=== PATIENT | female | born 1995 | race American Indian/Alaskan Native ===

== ENCOUNTER 2024-12-14 15:42 | Outpatient (CLI) | payer OTHER, SELFPAY ==
--- OUTSIDE RECORDS SUMMARY | 2024-12-14 15:59 | XMS_ITS | Encounter Summary ---
Author Organization [facility] Address [address] [place] [address] Care Team Providers Care Injection Molder Name Role Phone None, Provider Primary Care Provider Krishan Jaeger MD Primary Care Provider Aaron Sanchez MD Primary Care Provider [phone] Encounter Details Date Type Department Care Team (Late st Contact Info) Description 04/16/2019 Abstract SFL CONVERSION [address] [place] [id number] , Generic Conversion, Social History Tobacco Use Types Packs/Day Years Used Date Smoking Tobacco: Never Assessed Comments Unknown Sex and Gender Information Value Date Recorded Sex Assigned at Not on file Legal Sex Female 7:11 PM CDT Gender Identity Not on file Sexual Orientation Not on file documented as of this encounter Plan of Treatment Not on file documented as of this encounter Visit Diagnoses Not on filedocumented in this encounter Additional Health Concerns Infection Onset Date Last Indicated Resolved Time ESBL - Extended Spectrum Bet a-lactamase Comment:06/11/23 urine (JK) 06/17/23 urine (JK) 06/11/2023 06/17/2023 documented as of this encounter Care Teams Injection Molder Relationship Specialty Start Date End Date None, Provider, PCP - General 09/14/18 03/10/22 Krishan Johnson MD [address] [place] [address] PCP - General FAMILY PRACTICE 03/11/22 06/21/24 Aaron Sanchez MD [address] [place] [address] PCP - General FAMILY PRACTICE 06/22/24 documented as of this encounter
--- OUTSIDE RECORDS SUMMARY | 2024-12-14 16:00 | XMS_ITS | Clinical Summary ---
Author Organization [facility] Address [address] [place] [address] Care Team Providers Care Travel Ticketing Reviewer Name Role Phone Aaron Sanchez MD Primary Care Provider [phone] Allergies Active Allergy Reactions Criticality Noted Date Comments Penicillins Throat swelling High 01/28/2023 Medications No known medications Active Problems Problem Noted Date Diagnosed Date ([facility]) 12/16/2023 Appendicitis 03/15/2023 Acute appendicitis 03/14/2023 Tear of left glenoid labrum, initial encounter 0 01/30/2023 Resolved Problems Problem Noted Date Diagnosed Date Resolved Date Dehydration 04/29/2023 04/30/2023 Encounters Date Type Department Care Team Description 10/03/2024 12:57 PM COMPUTER OPERATIONS MANAGER - 10/03/2024 11:[address] [facility] Hospital Encounter [facility] Ultrasound [address] [place] [address] Ting Lau, FERMÍN Discharge Disposition: Home or Self Care (Routine Discharge) 10/03/2024 Travel from Last 3 Months Family History Medical History Relation Comments No Known Problems Father No Known Problems Mother Relation Status Comments Father Alive Mother Alive Social History Tobacco Use Types Packs/Day Years Used Date Smoking Tobacco: Never Smokeless Tobacco: Never Tobacco Cessation:Counseling Given: Not Answered Alcohol Use Standard Drinks/Week Comments Not Currently 0 (1 standard drink = 0.6 oz pur e alcohol) Humiliation, Afraid, Rape, and Kick questionnair e Answer Date Recorded Within the last year, have y ou been afraid of your partner or ex-partner? No 04/29/2023 Within the last year, have y ou been humiliated or emotionally abused in other ways by your partner or ex-partner? No Within the last year, have y ou been kicked, hit, slapped, or otherwise physically hurt by your partner or ex-partner? No 04/29/2023 Within the last year, have y ou been raped or forced to have any kind of sexual activity by your partner or ex-partner? No 04/29/2023 Overall Financial Resource Strain (CARDIA) Answe r Date Recorded How hard is it for you to pa y for the very basics like food, housing, medical care, and heating? Not hard at all 04/29/2023 Hunger Vital Sign Answer Date Recorded Within the past 12 months, y ou worried that your food would run out before you got the money to buy more. Never true 04/29/20 23 Within the past 12 months, t he food you bought just didn't last and you didn't have money to get more. Never true 04/29/2023 PRAPARE - Transportation Answer Date Re corded In the past 12 months, has l ack of transportation kept you from medical appointments or from getting medications? No 04/10 In the past 12 months, has l ack of transportation kept you from meetings, work, or from getting things needed for daily living? No 04/29/2023 Housing Stability Vital Sign Answer Bhupendra e Recorded In the last 12 months, was t here a time when you were not able to pay the mortgage or rent on time? No 04/29/2023 In the last 12 months, how many places have you lived? 1 04/29/2023 In the last 12 months, was t here a time when you did not have a steady place to sleep or slept in a senior care (including now)? No 04/29/2023 Comments No Sex and Gender Information Value Date Recorded Sex Assigned at Not on file Legal Sex Female 7:11 PM CDT Gender Identity Not on file Sexual Orientation Not on file Last Filed Vital Signs Vital Sign Reading Time Taken Comments Blood Pressure 105/87 12/17/2023 10:50 AM COMPUTER OPERATIONS MANAGER Pulse 82 12/17/2023 10:50 AM COMPUTER OPERATIONS MANAGER Temperature 36.9 C (98.5 F) 12/17/2023 7:24 AM COMPUTER OPERATIONS MANAGER Respiratory Rate 16 12/17/2023 7:24 AM COMPUTER OPERATIONS MANAGER Oxygen Saturation 96% 12/17/2023 7:24 AM COMPUTER OPERATIONS MANAGER Inhaled Oxygen Concentration - - Weight 86.2 kg (190 lb) 12/16/2023 1:40 AM COMPUTER OPERATIONS MANAGER Height 149.9 cm (4' 11 ) 12/16/2023 1:40 AM COMPUTER OPERATIONS MANAGER Body Mass Index 38.38 12/16/2023 1:40 AM COMPUTER OPERATIONS MANAGER Plan of Treatment Health Maintenance Due Date Last Done Comments Cervical Cancer Screening Pap Smear (Age 21 to 29) Every 3 Years 1997 Cervical Cancer Screening 1997 Annual Physical 2000 DTaP, Tdap and Td Vaccines (5 - Td or Tdap) 03/31/2018 03/31/2008, 05/18/2003, 01/17/2000, Additional history exists COVID-19 Vaccine ( season) 2024 Influenza Adult (#1) 2024 Hepatitis B Vaccines Completed 02/27/1998, 1997, 1997 Hepatitis C Completed 07/12/2024, 06/17/2023 HPV Vaccines Aged Out No longer eligi ble based on patient's age to complete this topic Meningococcal B Vaccine Aged Out No l onger eligible based on patient's age to complete this topic Meningococcal Vaccine Aged Out No almas sergio eligible based on patient's age to complete this topic Pneumococcal Vaccine: Pediatrics (0 to 5 Years) and At-Risk Patients (6 to 64 Years) Aged Out No longer eligible based on patient's age to complete this topic RSV Immunizations Under 20 Months Aged Out No longer eligible based on patient's age to complete this topic Procedures Procedure Name Priority Date/Time Associated Diagnosis Comments US OB COMP >14WKS TA Routine 10/03/2024 2:43 PM COMPUTER OPERATIONS MANAGER Encounter for screening (HHS/HCC) HEPATITIS C ANTIBODY Routine 07/12/2024 10:49 AM CDT Screening for -associate d plasma protein A (HHS/HCC) from Last 3 Months or Most Recently Relevant to Health Maintenance Results * US OB COMP >14WKS TA (10/03/2024 2:43 PM COMPUTER OPERATIONS MANAGER) Anatomical Region Laterality Modality Abdomen Ultrasound 10/03/2024 4:41 PM COMPUTER OPERATIONS MANAGER Impressions 10/03/2024 4:49 PM COMPUTER OPERATIONS MANAGER IMPRESSION: 1. Single living intrauterine currently in cephalic presentation with a estimated gestational age of 20 weeks and 3 days by today's sonogram, concordant with clinical dating. 2. All required structures are visualized without appreciable anomaly. 3. Posterior placenta without previa. Ordered By: TING LAU Interpreted By: Cecil Romero, 10/03/2024 4:41 PM Narrative 10/03/2024 4:49 PM COMPUTER OPERATIONS MANAGER [facility] [address] [place] [address] EXAMINATION: US OB COMP >14WKS TA INDICATIONS: Encounter for screening, unspecified ([facility]) COMPARISON: NONE TECHNIQUE: Second trimester obstetric transabdominal ultrasound imaging of the fetus. FINDINGS: Clinical datin weeks and 0 days.. Single live intrauterine in cephalic presentation. Normal four-chamber view of the heart with normal cardiac motion and a heart rate of 156 beats per minute. The ventricular outflow tracts are visualized. The placenta is posterior and clear of the internal cervical os. Placenta-Cervix distance: 5.8 cm. The cervix measures approximately 4.7 cm in length and appears closed. Amniotic Fluid Maximum Vertical Pocket: 4.9 cm. No significant free fluid within the dependent pelvis. anatomic survey: The ventricles, thalami, cava, cisterna magna, nasolabial region, and spine are visualized. Normal situs. The diaphragm, kidneys, stomach, and urinary bladder are visualized. Normal three-vessel cord and cord insertion. Four extremities are present . The following measurements were obtained: BPD: 4.75 cm consistent with 20 weeks and 3 days. HC: 17.99 cm consistent with 20 weeks and 3 days. AC: 14.97 cm consistent with 20 weeks and 2 days. FL: 3.41 cm consistent with 20 weeks and 5 days. CI: 74.22. HC/AC: 1.20. FL/BPD: 71.89. FL/HC: 18.99. FL/AC: 22.81. Estimated weight is 355 +/- 52 grams. EFW percentile: 71.9 % Estimated gestational age by today's sonogram is 20 weeks and 3 days. Estimated date of confinement by this ultrasound examination is 02/17/2025 Procedure Note Cecil Romero MD - 10/03/2024 [facility] Jimenez [address] [place] [address] EXAMINATION: US OB COMP >14WKS TA INDICATIONS: Encounter for screening, unspecified ([facility]) COMPARISON: NONE TECHNIQUE: Second trimester obstetric transabdominal ultrasound imagingof the fetus. FINDINGS: Clinical datin weeks and 0 days.. Single live intrauterine in cephalic presentation. Normal four-chamber view of the heart with normal cardiac motion carmen heart rate of 156 beats per minute. The ventricular outflow tracts are visualized. The placenta is posterior and clear of the internal cervical os. Placenta-Cervix distance: 5.8 cm. The cervix measures approximately 4.7 cm in length and appears closed. Amniotic Fluid Maximum Vertical Pocket: 4.9 cm. No significant free fluid within the dependent pelvis. anatomic survey: The ventricles, thalami, cava, cisterna magna, nasolabial region, andspine are visualized. Normal situs. The diaphragm, kidneys, stomach, and urinary bladder are visualized. Normal three-vessel cord and cord insertion. Four extremities are present . The following measurements were obtained: BPD: 4.75 cm consistent with 20 weeks and 3 days. HC: 17.99 cm consistent with 20 weeks and 3 days. AC: 14.97 cm consistent with 20 weeks and 2 days. FL: 3.41 cm consistent with 20 weeks and 5 days. CI: 74.22. HC/AC: 1.20. FL/BPD: 71.89. FL/HC: 18.99. FL/AC: 22.81. Estimated weight is 355 +/- 52 grams. EFW percentile: 71.9 % Estimated gestational age by today's sonogram is 20 weeks and 3 days. Estimated date of confinement by this ultrasound examination is 02/17/2025 IMPRESSION: 1. Single living intrauterine currently in cephalicpresentation with a estimated gestational age of 20 weeks and 3 days bytoday's sonogram, concordant with clinical dating. 2. All required structures are visualized without appreciableanomaly. 3. Posterior placenta without previa. Ordered By: TING LAU Interpreted By: Cecil Romero, 10/03/2024 4:41 PM Ting Lau CN ULTRASOUND Final Result * HEPATITIS C ANTIBODY (07/12/2024 10:49 AM CDT) HEPATITIS C AB NON-REACTI VE NON-REACTI VE 07/12/2024 9:58 PM CDT [facility] 07/12/2024 10:4 9 AM CDT [facility] Final Result [facility] [address] [place] [address], from Last 3 Months or Most Recently Relevant to Health Maintenance Additional Health Concerns Infection Onset Date Last Indicated ESBL - Extended Spectrum Bet a-lactamase Comment:06/11/23 urine (AnnabelK) 06/17/23 urine (JK) 06/11/2023 06/17/2023 Insurance Advance Directives * Full Code (Latest Code Status on File) Date Activated Date Inactivated Comments 12/16/2023 1:23 AM 12/16/2023 5:22 PM * Full Code Date Activated Date Inactivated Comments 12/16/2023 1:04 AM 12/16/2023 1:23 AM * Full Code Date Activated Date Inactivated Comments 12/15/2023 2:20 PM 12/15/2023 7:21 PM * Full Code Date Activated Date Inactivated Comments 11/03/2023 5:26 PM 11/03/2023 7:39 PM * Full Code Date Activated Date Inactivated Comments 04/29/2023 5:15 PM 04/30/2023 3:29 AM Care Teams Travel Ticketing Reviewer Relationship Specialty Start Date End Date Aaron Sanchez MD [address] [place] [address] PCP - General FAMILY PRACTICE 06/22/24
[2024-12-14 17:51] LABS: Hematocrit 37.1 % (37.0-47.0); Hemoglobin 12.3 g/dL (12.0-15.0); Mean Corpuscular HGB Conc 33.2 g/dl (32-36); Mean Corpuscular Hemoglobin 31.9 pg (26-34); Mean Corpuscular Volume 96.1 fl (80-100); Mean Platelet Volume 10.6 fl (7.4-10.4); Platelet Count Result 277 k/mm3 (150-375); Red Blood Count 3.86 M/mm3 (4.2-5.4); Red Cell Distribution Width 13.2 % (11.5-14.5); White Blood Count 10.2 K/mm3 (4.5-10.0)
[2024-12-14 18:48] LABS: HIV 1/2 Ab P24 Ag Result Negative (Negative)
[2024-12-14 18:58] LABS: Glucose 1 Hour PP 50gm Dose 161 mg/dL
[2024-12-15 06:40] LABS: Rapid Plasma Reagin Non-Reactive (NonReactive)
== END 2024-12-14 15:43 | disposition home or self-care (01) ==
LOC: ANHLAB 15:43
PROVIDERS: PCP Student in an Organized Health Care Education/Training Program; Visit Provider Student in an Organized Health Care Education/Training Program
DX: Z34.90 Encounter for supervision of normal pregnancy, unspecified, unspecified trimester (principal)
CPT/HCPCS: 36415; 82947; 85027; 86592; 86703; G0432

== ENCOUNTER 2024-12-19 18:41 | Observation (INO) | payer OTHER, SELFPAY ==
[2024-12-19] VITALS (61 sets, daily range): BP systolic 87–109; BP diastolic 50–68; PULSE 85–112; TEMP 37.1; O2SAT 90–100; BMI 38.0
--- OUTSIDE RECORDS SUMMARY | 2024-12-19 18:49 | XMS_ITS | Encounter Summary ---
Author Organization [facility] Address [address] [place] [address] Care Team Providers Care Lawn Mower Name Role Phone None, Provider Primary Care Provider Krishan Jaeger MD Primary Care Provider Aaron Sanchez MD Primary Care Provider [phone] Encounter Details Date Type Department Care Team (Late st Contact Info) Description 04/16/2019 Abstract SFL CONVERSION [address] [place] [id number] , Generic Conversion, Social History Tobacco Use [...] documented as of this encounter Care Teams Lawn Mower Relationship Specialty Start Date End Date None, Provider, PCP - General 09/14/18 03/10/22 Krishan Johnson MD [address] [place] [address] PCP - General FAMILY PRACTICE 03/11/22 06/21/24 Aaron Sanchez MD [address] [place] [address] PCP - General FAMILY PRACTICE 06/22/24 documented as of this encounter
--- OUTSIDE RECORDS SUMMARY | 2024-12-19 18:49 | XMS_ITS | Clinical Summary ---
Author Organization [facility] Address [address] [place] [address] Care Team Providers Care Manager School Name Role Phone Aaron Sanchez MD Primary Care Provider [phone] Allergies Active Allergy Reactions Criticality Noted Date Comments Penicillins Throat swelling High 01/28/2023 Medications No known medications Active Problems Problem Noted Date Diagnosed Date ([facility]) 12/16/2023 Appendicitis 03/15/2023 Acute appendicitis 03/14/2023 Tear of left glenoid labrum, initial encounter 0 01/30/2023 Resolved Problems Problem Noted Date Diagnosed Date Resolved Date Dehydration 04/29/2023 04/30/2023 Encounters Date Type Department Care Team Description 10/03/2024 12:57 PM PADDED PRODUCTS FINISHER - 10/03/2024 11:59 PM [facility] Hospital Encounter [facility] Ultrasound [address] [place] [address] Ting Lau, FERMÍN Discharge Disposition: Home or [...] place to sleep or slept in a jail (including now)? No 04/29/2023 Comments No Sex and Gender Information Value Date Recorded Sex Assigned at Not on file Legal Sex Female 7:11 PM CDT Gender Identity Not on file Sexual Orientation Not on file Last Filed Vital Signs Vital Sign Reading Time Taken Comments Blood Pressure 105/87 12/17/2023 10:50 AM PADDED PRODUCTS FINISHER Pulse 82 12/17/2023 10:50 AM PADDED PRODUCTS FINISHER Temperature 36.9 C (98.5 F) 12/17/2023 7:24 AM PADDED PRODUCTS FINISHER Respiratory Rate 16 12/17/2023 7:24 AM PADDED PRODUCTS FINISHER Oxygen Saturation 96% 12/17/2023 7:24 AM PADDED PRODUCTS FINISHER Inhaled Oxygen Concentration - - Weight 86.2 kg (190 lb) 12/16/2023 1:40 AM PADDED PRODUCTS FINISHER Height 149.9 cm (4' 11 ) 12/16/2023 1:40 AM PADDED PRODUCTS FINISHER Body Mass Index 38.38 12/16/2023 1:40 AM PADDED PRODUCTS FINISHER Plan of Treatment Health Maintenance Due Date [...] COMP >14WKS TA Routine 10/03/2024 2:43 PM PADDED PRODUCTS FINISHER Encounter for screening (HHS/HCC) HEPATITIS C ANTIBODY Routine 07/12/2024 10:49 AM CDT Screening for -associate d plasma protein A (HHS/HCC) from Last 3 Months or Most Recently Relevant to Health Maintenance Results * US OB COMP >14WKS TA (10/03/2024 2:43 PM PADDED PRODUCTS FINISHER) Anatomical Region Laterality Modality Abdomen Ultrasound 10/03/2024 4:41 PM PADDED PRODUCTS FINISHER Impressions 10/03/2024 4:49 PM PADDED PRODUCTS FINISHER IMPRESSION: 1. Single living intrauterine currently in cephalic presentation with a estimated gestational age of 20 weeks and 3 days by today's sonogram, concordant with clinical dating. 2. All required structures are visualized without appreciable anomaly. 3. Posterior placenta without previa. Ordered By: TING LAU Interpreted By: Cecil Romero, 10/03/2024 4:41 PM Narrative 10/03/2024 4:49 PM PADDED PRODUCTS FINISHER [facility] [address] [place] [address] EXAMINATION: US OB COMP >14WKS TA INDICATIONS: Encounter for screening, unspecified ([facility]) COMPARISON: NONE TECHNIQUE: Second trimester [...] Procedure Note Cecil Romero MD - 10/03/2024 [facility] [address] [place] [address] EXAMINATION: US OB COMP >14WKS TA INDICATIONS: Encounter for screening, unspecified ([facility]) COMPARISON: NONE TECHNIQUE: Second trimester [...] VE NON-REACTI VE 07/12/2024 9:58 PM CDT [facility] 07/12/2024 10:4 9 AM CDT [facility] Final Result [facility] [address] [place] [address], from Last 3 Months or Most Recently [...] 5:15 PM 04/30/2023 3:29 AM Care Teams Manager School Relationship Specialty Start Date End Date Aaron Sanchez MD [address] [place] [address] PCP - General FAMILY PRACTICE 06/22/24
--- NOTE | 2024-12-19 19:13 | OBADM ---
This patient, Ashlee Jeronimo, admitted to the OB room OB Post 117 for observation. Patient/family oriented to hospital policies and general routines including ID bracelet, bed and alarms, visiting hours, pain management, procedures, bathroom and other care routines, personal items, smoking policy, room service/diet, and visiting hours. Patient/Family are encouraged to report perceived risks to care and to ask questions if they do not understand what they are told or what they should do.
--- NOTE | 2024-12-19 20:00 | PC.NURSE ---
Called Dr. Russo, update on pt, cramping, nausea, vomiting, unable to void since 12/18, blood pressure, and tracing. Orders received to administer LR bolus 1000 ml then 250 ml/hr, zofran 4 mg, pepcid 20 mg, draw CBC, CMP, urinalysis, and COVID, flu, RSV swab.
[2024-12-19 20:37] LABS: Basophils Percent Auto 0.4 % (0.2-1.2); Eosinophils Percent Auto 0.2 % (0-4.4); Hemoglobin 11.3 g/dL (12.0-15.0); Immature Granulocyte Percent A 1.2 % (0-0.5); Lymphocytes Absolute Auto 0.61 K/mm3 (0.9-3.2); Lymphocytes Percent Auto 7.5 % (18.3-44.2); Mean Corpuscular HGB Conc 33.2 g/dl (32-36); Mean Corpuscular Hemoglobin 31.3 pg (26-34); Mean Corpuscular Volume 94.2 fl (80-100); Monocytes Absolute Auto 0.7 K/mm3 (0.1-0.6); Monocytes Percent Auto 9.2 % (2.6-8.5); Neutrophils Absolute Auto 6.6 K/mm3 (1.3-6.7); Neutrophils Percent Auto 81.5 % (45.5-73.1); Platelet Count Result 226 k/mm3 (150-375); Red Blood Count 3.61 M/mm3 (4.2-5.4); Red Cell Distribution Width 13.1 % (11.5-14.5); White Blood Count 8.1 K/mm3 (4.5-10.0)
[2024-12-19 20:46] LABS: Alanine Aminotransferase 20 U/L (6-35); Albumin Level 3.7 g/dL (3.5-5.1); Alkaline Phosphatase 103 U/L (38-126); Anion Gap 11 mmol/L (4-12); Aspartate Amino Transferase 20 U/L (14-36); Bilirubin,Total 0.6 mg/dL (0.2-1.3); Blood Urea Nitrogen 8 mg/dL (7-17); Calcium 8.3 mg/dL (8.4-10.2); Carbon Dioxide 20 mmol/L (22-30); Chloride 102 mmol/L (98-107); Estimated Glomerular Filt Rate > 60; Glucose 80 mg/dL (65-110); Potassium 3.4 mmol/L (3.4-5.0); Sodium 133 mmol/L (137-145)
[2024-12-19] MEDS: LACTATED RINGERS 1,000 ML 999 ML IV CONT ×2 (21:15→22:20)
[2024-12-19] MEDS: ONDANSETRON INJ 4 MG/2 ML VIAL IV PUSH (21:21)
[2024-12-19] MEDS: FAMOTIDINE 20 MG/2 ML VIAL IV PUSH (21:24)
--- NOTE | 2024-12-19 21:51 | PC.NURSE ---
Called Dr. Russo, update on pt, labs, and not able to void after LR bolus. Orders received to bolus second bag and administer Tylenol 1000 mg as needed.
[2024-12-19 23:08] LABS: Influenza A QL RT-PCR Positive (Negative); Influenza B QL RT-PCR Negative (Negative); RSV RNA, RT-PCR Negative (Negative); SARS-CoV-2 RNA PCR Negative (Negative)
[2024-12-19 23:38] LABS: Add Urine Microscopic? YES; Appearance Urine Turbid (Clear); Bacteria Urine 1+ /hpf; Bilirubin Urine 1+ (Negative); Blood Urine Negative (Negative); Color Urine Dark Yellow (Yellow); Glucose Urine UA Negative (Negative); Ketones Urine 4+ mg/dL (Negative); Leukocyte Esterase Ur 2+ LEU/UL (Negative); Nitrate Urine Negative (Negative); Non Pathogenic Casts 0-2; Protein Urine 1+ mg/dL (Negative); RBC Urine 0-2 /hpf (0-2); Specific Grav Ur 1.025 (1.001-1.035); Squamous Epithelial Cell Urine Occasional /hpf (Few); WBC Urine 51-100 /hpf (0-3)
--- NOTE | 2024-12-19 23:46 | PC.NURSE ---
Called Dr. Russo, update on pt, urine results, and positive Influenza A. Orders received to discharge pt with a prescription for bactrim DS BID for three days, keep next scheduled appointment, and when to return to the unit.
--- NOTE | 2024-12-20 00:21 | PC.NURSE ---
Pt discharged with a prescription for bactrim DS BID for three days, instructions to keep next scheduled appointment, and when to return to the unit, pt verbalizes understanding.
--- NOTE | 2024-12-21 07:56 | PM.OBTRLD ---
OB - Triage/Final Diagnosis Visit Information Comments/Additional reasons for admission: I have assessed the risk for this patient, Ashlee Jeronimo, and determined that she would benefit from observation care. Evaluation Laboratory results: Laboratory Tests 12/19/24 12/19/24 12/19/24 20:14 22:24 23:24 WBC 8.1 RBC 3.61 L Hgb 11.3 L Hct 34.0 L MCV 94.2 MCH 31.3 MCHC 33.2 RDW 13.1 Plt Count 226 MPV 10.0 Immature Gran % (Auto) 1.2 H Neut % (Auto) 81.5 H Lymph % (Auto) 7.5 L [place] % (Auto) 9.2 H Eos % (Auto) 0.2 Baso % (Auto) 0.4 Lymph # (Auto) 0.61 L [place] # (Auto) 0.7 H Eos # (Auto) 0.0 Baso # (Auto) 0.0 Abs Immat Gran (auto) 0.10 H Absolute Neuts (auto) 6.6 Absolute Nucleated RBC 0.000 Nucleated RBC % 0.0 Sodium 133 L Potassium 3.4 Chloride 102 Carbon Dioxide 20 L Anion Gap 11 BUN 8 Creatinine 0.51 L Estim Creat Clear Calc Not Reportable Estimated GFR > 60 Glucose 80 Calcium 8.3 L Total Bilirubin 0.6 AST 20 ALT 20 Alkaline Phosphatase 103 Total Protein 7.0 Albumin 3.7 Urine Color Dark yellow Urine Appearance Turbid H Urine pH 6.0 Ur Specific [place] 1.025 Urine Protein 1+ H Urine Glucose (UA) Negative Urine Ketones 4+ H Ur Blood (Man) Negative Urine Nitrate Negative Urine Bilirubin 1+ H Urine Urobilinogen 1.0 Leukocyte Esterase Rfl 2+ H Urine RBC 0-2 Urine WBC 51-100 H Ur Squamous Epith Cells Occasional Urine Bacteria 1+ H Urine Casts 0-2 Influenza A (RT-PCR) Positive A Influenza B (RT-PCR) Negative RSV (RT-PCR) Negative SARS-CoV-2 RNA (RT-PCR) Negative Final Diagnosis (1) UTI (urinary tract infection): Code(s): N39.0 - Urinary tract infection, site not specified Status: Acute (2) Dehydration: Code(s): E86.0 - Dehydration Status: Acute (3) Flu: Code(s): J11.1 - Influenza due to unidentified influenza virus with other respiratory manifestations Status: Acute
== END 2024-12-20 00:21 | disposition home or self-care (01) ==
PROVIDERS: Admitting Provider Obstetrics & Gynecology; Visit Provider Obstetrics & Gynecology
DX: O23.43 Unspecified infection of urinary tract in pregnancy, third trimester (principal); N39.0 Urinary tract infection, site not specified; O99.283 Endocrine, nutritional and metabolic diseases complicating pregnancy, third trimester; E86.0 Dehydration; O99.513 Diseases of the respiratory system complicating pregnancy, third trimester; J10.1 Influenza due to other identified influenza virus with other respiratory manifestations; Z3A.31 31 weeks gestation of pregnancy; Z20.822 Contact with and (suspected) exposure to COVID-19
CPT/HCPCS: 36415; 80053; 81001; 85025; 87086; 87637; 96361; 96374; 96375; 96376; 99199; A9270; G0378; G0379; J2405; J7120

== ENCOUNTER 2024-12-28 12:18 | Observation (INO) | payer OTHER, SELFPAY ==
[2024-12-28] VITALS (8 sets, daily range): BP systolic 91–123; BP diastolic 63–100; PULSE 84–111; BMI 39.8
--- NOTE | ~2024-12-28 | US_ITS ---
US abdomen limited INDICATION: Elevated liver enzymes. PROCEDURE: Realtime right upper abdominal ultrasound. COMPARISON: Ultrasound gallbladder dated 12/22/2014 FINDINGS: Pancreas is not visualized due to bowel shadowing. Liver echotexture is normal without foc al mass or intrahepatic biliary dilatation. There is normal directional flow in the portal vein. There are gallstones. Gallbladder is contracted limiting evaluation for gallbladder wall thickening. No pericholecystic fluid. Common bile duct measures 3 mm. No sonographic Wellington's sign. IMPRESSION: 1: Cholelithiasis. Reviewed, dictated and finalized at location B. CTOR LOSS PREVENTION IMPRESSION: 1: Cholelithiasis.
--- OUTSIDE RECORDS SUMMARY | 2024-12-28 12:24 | XMS_ITS | Encounter Summary ---
Author Organization [facility] Address [address] [place] [address] Care Team Providers Care Manager Of Maintenance Name Role Phone None, Provider Primary Care Provider Krishan Jaeger MD Primary Care Provider Aaron Sanchez MD Primary Care Provider [phone] Encounter Details Date Type Department Care Team (Late st Contact Info) Description 04/16/2019 Abstract SFL CONVERSION [address] [place] [id number] , Generic Conversion, Social History Tobacco Use [...] documented as of this encounter Care Teams Manager Of Maintenance Relationship Specialty Start Date End Date None, Provider, PCP - General 09/14/18 03/10/22 Krishan Johnson MD [address] [place] [address] PCP - General FAMILY PRACTICE 03/11/22 06/21/24 Aaron Sanchez MD [address] [place] [address] PCP - General FAMILY PRACTICE 06/22/24 documented as of this encounter
--- OUTSIDE RECORDS SUMMARY | 2024-12-28 12:24 | XMS_ITS | Clinical Summary ---
Author Organization [facility] Address [address] [place] [id number] Care Team Providers Care Roof Bolting Coal Miner Name Role Phone Aaron Sanchez MD Primary Care Provider [phone] Allergies Active Allergy Reactions Criticality Noted Date Comments Penicillins Throat swelling High 01/28/2023 Medications No known medications Active Problems Problem Noted Date Diagnosed Date ([facility]) 12/16/2023 Appendicitis 03/15/2023 Acute appendicitis 03/14/2023 Tear of left glenoid labrum, initial encounter 0 01/30/2023 Resolved Problems Problem Noted Date Diagnosed Date Resolved Date Dehydration 04/29/2023 04/30/2023 Encounters Date Type Department Care Team Description 10/03/2024 12:57 PM AIR DEFENCE OFFICER - 10/03/2024 11:59 PM [facility] Hospital Encounter [facility] Ultrasound [address] [place] [address] Ting Lau, FERMÍN Discharge Disposition: Home or [...] place to sleep or slept in a custodial (including now)? No 04/29/2023 Comments No Sex and Gender Information Value Date Recorded Sex Assigned at Not on file Legal Sex Female 7:11 PM CDT Gender Identity Not on file Sexual Orientation Not on file Last Filed Vital Signs Vital Sign Reading Time Taken Comments Blood Pressure 105/87 12/17/2023 10:50 AM AIR DEFENCE OFFICER Pulse 82 12/17/2023 10:50 AM AIR DEFENCE OFFICER Temperature 36.9 C (98.5 F) 12/17/2023 7:24 AM AIR DEFENCE OFFICER Respiratory Rate 16 12/17/2023 7:24 AM AIR DEFENCE OFFICER Oxygen Saturation 96% 12/17/2023 7:24 AM AIR DEFENCE OFFICER Inhaled Oxygen Concentration - - Weight 86.2 kg (190 lb) 12/16/2023 1:40 AM AIR DEFENCE OFFICER Height 149.9 cm (4' 11) 12/16/2023 1:40 AM AIR DEFENCE OFFICER Body Mass Index 38.38 12/16/2023 1:40 AM AIR DEFENCE OFFICER Plan of Treatment Health Maintenance Due Date [...] COMP >14WKS TA Routine 10/03/2024 2:43 PM AIR DEFENCE OFFICER Encounter for screening (HHS/HCC) HEPATITIS C ANTIBODY Routine 07/12/2024 10:49 AM CDT Screening for -associate d plasma protein A (HHS/HCC) from Last 3 Months or Most Recently Relevant to Health Maintenance Results * US OB COMP >14WKS TA (10/03/2024 2:43 PM AIR DEFENCE OFFICER) Anatomical Region Laterality Modality Abdomen Ultrasound 10/03/2024 4:41 PM AIR DEFENCE OFFICER Impressions 10/03/2024 4:49 PM AIR DEFENCE OFFICER IMPRESSION: 1. Single living intrauterine currently in cephalic presentation with a estimated gestational age of 20 weeks and 3 days by today's sonogram, concordant with clinical dating. 2. All required structures are visualized without appreciable anomaly. 3. Posterior placenta without previa. Ordered By: TING LAU Interpreted By: Cecil Romero, 10/03/2024 4:41 PM Narrative 10/03/2024 4:49 PM AIR DEFENCE OFFICER [facility] [address] [place] [address] EXAMINATION: US OB COMP >14WKS TA INDICATIONS: Encounter for screening, unspecified ([facility]) COMPARISON: NONE TECHNIQUE: Second trimester obstetric transabdominal [...] Procedure Note Cecil Romero MD - 10/03/2024 [facility] [address] [place] [address] EXAMINATION: US OB COMP >14WKS TA INDICATIONS: Encounter for screening, unspecified ([facility]) COMPARISON: NONE TECHNIQUE: Second trimester obstetric transabdominal [...] VE NON-REACTI VE 07/12/2024 9:58 PM CDT [facility] 07/12/2024 10:4 9 AM CDT [facility] Final Result [facility] [address] [place] [address], from Last 3 Months or Most Recently [...] 5:15 PM 04/30/2023 3:29 AM Care Teams Roof Bolting Coal Miner Relationship Specialty Start Date End Date Aaron Sanchez MD [address] [place] [address] PCP - General FAMILY PRACTICE 06/22/24
[2024-12-28 13:21] LABS: Alanine Aminotransferase 272 U/L (6-35); Albumin Level 3.8 g/dL (3.5-5.1); Alkaline Phosphatase 109 U/L (38-126); Anion Gap 12 mmol/L (4-12); Aspartate Amino Transferase 134 U/L (14-36); Bilirubin,Total 0.6 mg/dL (0.2-1.3); Blood Urea Nitrogen 11 mg/dL (7-17); Calcium 9.1 mg/dL (8.4-10.2); Carbon Dioxide 18 mmol/L (22-30); Chloride 104 mmol/L (98-107); Estimated Glomerular Filt Rate > 60; Glucose 104 mg/dL (65-110); Sodium 134 mmol/L (137-145)
[2024-12-28] MEDS: LACTATED RINGERS 1,000 ML 999 ML IV CONT ×3 (13:22→16:49)
[2024-12-28] MEDS: PROMETHAZINE HCL 25 MG/ML AMPUL 12.5 MG IV PUSH (13:25)
[2024-12-28 13:29] LABS: Basophils Absolute Auto 0.1 K/mm3 (0.0-0.1); Basophils Percent Auto 0.4 % (0.2-1.2); Eosinophils Absolute Auto 0.3 K/mm3 (0-0.3); Hematocrit 38.1 % (37.0-47.0); Hemoglobin 12.8 g/dL (12.0-15.0); Immature Granulocyte Absolute 0.14 K/mm3 (0.00-0.031); Lymphocytes Absolute Auto 2.08 K/mm3 (0.9-3.2); Lymphocytes Percent Auto 15.6 % (18.3-44.2); Mean Corpuscular HGB Conc 33.6 g/dl (32-36); Mean Corpuscular Hemoglobin 30.6 pg (26-34); Mean Corpuscular Volume 91.1 fl (80-100); Mean Platelet Volume 10.6 fl (7.4-10.4); Monocytes Absolute Auto 0.8 K/mm3 (0.1-0.6); Monocytes Percent Auto 6.3 % (2.6-8.5); Neutrophils Percent Auto 74.7 % (45.5-73.1); Platelet Count Result 327 k/mm3 (150-375); Red Blood Count 4.18 M/mm3 (4.2-5.4); Red Cell Distribution Width 12.8 % (11.5-14.5); White Blood Count 13.4 K/mm3 (4.5-10.0)
--- NOTE | 2024-12-28 13:34 | OBADM ---
This patient, Ashlee Jeronimo, admitted to the OB room OB Post 113 for observation. Patient/family oriented to hospital policies and general routines including ID bracelet, bed and alarms, visiting hours, pain management, procedures, bathroom and other care routines, personal items, smoking policy, room service/diet, and visiting hours. Patient/Family are encouraged to report perceived risks to care and to ask questions if they do not understand what they are told or what they should do.
[2024-12-28] MEDS: PANTOPRAZOLE SODIUM IV 40 MG VIAL IV PUSH (14:03)
--- NOTE | 2024-12-28 15:02 | PC.NURSE ---
1340--No nausea or vomiting at this time.
--- NOTE | 2024-12-28 15:02 | PC.NURSE ---
1450--Pt is unable to leave a urine sample. IV fluids continued.
[2024-12-28 15:37] LABS: Add Urine Microscopic? YES; Appearance Urine Cloudy (Clear); Bacteria Urine 1+ /hpf; Bilirubin Urine 1+ (Negative); Blood Urine Negative (Negative); Color Urine Dark Yellow (Yellow); Glucose Urine UA Negative (Negative); Ketones Urine Trace mg/dL (Negative); Leukocyte Esterase Ur 1+ LEU/UL (Negative); Nitrate Urine Negative (Negative); Non Pathogenic Casts 0-2; Protein Urine 1+ mg/dL (Negative); RBC Urine 0-2 /hpf (0-2); Specific Grav Ur 1.027 (1.001-1.035); Squamous Epithelial Cell Urine Moderate /hpf (Few)
[2024-12-28 16:27] LABS: Lipase 101 U/L (23-300)
[2024-12-28] MEDS: ceFAZolin 1 GM/NS 50 ML 1 GM/50 ML BAG IVPB (16:49)
--- NOTE | 2024-12-28 17:33 | PC.NURSE ---
1728--Reported labs, US report and patient status to Dr. Russo. Orders received to DC to home and follow up with regularly scheduled office visit.
--- NOTE | 2024-12-29 07:19 | P.PNOB_ITS ---
OB - Triage/Final Diagnosis Visit Information Comments/Additional reasons for admission: I have assessed the risk for this patient, Ashlee Jeronimo, and determined that she would benefit from observation care. Evaluation Laboratory results: Laboratory Tests 12/28/24 12:59 WBC 13.4 H RBC 4.18 L Hgb 12.8 Hct 38.1 MCV 91.1 MCH 30.6 MCHC 33.6 RDW 12.8 Plt Count 327 MPV 10.6 H Immature Gran % (Auto) 1.0 H Neut % (Auto) 74.7 H Lymph % (Auto) 15.6 L Mccormick % (Auto) 6.3 Eos % (Auto) 2.0 Baso % (Auto) 0.4 Lymph # (Auto) 2.08 Mccormick # (Auto) 0.8 H Eos # (Auto) 0.3 Baso # (Auto) 0.1 Abs Immat Gran (auto) 0.14 H Absolute Neuts (auto) 10.0 H Absolute Nucleated RBC 0.000 Nucleated RBC % 0.0 Sodium 134 L Potassium 4.0 Chloride 104 Carbon Dioxide 18 L Anion Gap 12 BUN 11 Creatinine 0.50 L Estim Creat Clear Calc Not Reportable Estimated GFR > 60 Glucose 104 Calcium 9.1 Total Bilirubin 0.6 AST 134 H ALT 272 H Alkaline Phosphatase 109 Total Protein 7.0 Albumin 3.8 Lipase 101 Urine Color Dark yellow Urine Appearance Cloudy H Urine pH 7.0 Ur Specific Red Bud 1.027 Urine Protein 1+ H Urine Glucose (UA) Negative Urine Ketones Trace H Ur Blood (Man) Negative Urine Nitrate Negative Urine Bilirubin 1+ H Urine Urobilinogen 1.0 Leukocyte Esterase Rfl 1+ H Urine RBC 0-2 Urine WBC 11-20 H Ur Squamous Epith Cells Moderate Urine Bacteria 1+ H Urine Casts 0-2 Vital signs: Vital Signs - 24 hr 12/28/24 13:15 12/28/24 13:30 12/28/24 13:45 Pulse Rate 111 H 95 94 Blood Pressure 115/80 105/70 123/100 H Blood Pressure [Left Arm] 12/28/24 14:01 12/28/24 14:58 12/28/24 15:00 Pulse Rate 89 95 99 Blood Pressure 112/78 123/89 Blood Pressure [Left Arm] 105/70 12/28/24 16:01 12/28/24 17:00 Pulse Rate 89 84 Blood Pressure 99/67 L 91/63 L Blood Pressure [Left Arm] Final Diagnosis (1) Hyperemesis: Code(s): R11.10 - Vomiting, unspecified Status: Acute (2) Gall stones: Code(s): K80.20 - Calculus of gallbladder without cholecystitis without obstruction Status: Acute
== END 2024-12-28 17:51 | disposition home or self-care (01) ==
PROVIDERS: Admitting Provider Obstetrics & Gynecology; Visit Provider Obstetrics & Gynecology
DX: O21.2 Late vomiting of pregnancy (principal); O99.613 Diseases of the digestive system complicating pregnancy, third trimester; K80.20 Calculus of gallbladder without cholecystitis without obstruction; Z3A.32 32 weeks gestation of pregnancy
CPT/HCPCS: 36415; 59025; 76705; 80053; 81001; 83690; 85025; 96361; 96374; 96375; G0378; G0379; J0690; J2470; J2550; J7120

== ENCOUNTER 2025-02-14 17:00 | Inpatient (IN) | payer OTHER, SELFPAY ==
[2025-02-14] VITALS (20 sets, daily range): BP systolic 103–179; BP diastolic 76–122; PULSE 84–106; TEMP 36.9–37.3; BMI 39.6
--- OUTSIDE RECORDS SUMMARY | 2025-02-14 17:14 | XMS_ITS | Clinical Summary ---
Author Organization [facility] Address [address] [place] [address] Care Team Providers Care Onboarding Specialist Name Role Phone Aaron Sanchez MD Primary Care Provider [phone] Allergies Active Allergy Reactions Criticality Noted Date Comments Penicillins Throat swelling High 01/28/2023 Medications No known medications Active Problems Problem Noted Date Diagnosed Date ([facility]) 12/16/2023 Appendicitis 03/15/2023 Acute appendicitis 03/14/2023 Tear of left glenoid labrum, initial encounter 0 01/30/2023 Resolved Problems Problem Noted Date Diagnosed Date Resolved Date Dehydration 04/29/2023 04/30/2023 Family History Medical History Relation Comments No [...] place to sleep or slept in a usp (including now)? No 04/29/2023 Comments No Sex and Gender Information Value Date Recorded Sex Assigned at Not on file Legal Sex Female 7:11 PM CDT Gender Identity Not on file Sexual Orientation Not on file Last Filed Vital Signs Vital Sign Reading Time Taken Comments Blood Pressure 105/87 12/17/2023 10:50 AM SALES AND LEASING AGENT Pulse 82 12/17/2023 10:50 AM SALES AND LEASING AGENT Temperature 36.9 C (98.5 F) 12/17/2023 7:24 AM SALES AND LEASING AGENT Respiratory Rate 16 12/17/2023 7:24 AM SALES AND LEASING AGENT Oxygen Saturation 96% 12/17/2023 7:24 AM SALES AND LEASING AGENT Inhaled Oxygen Concentration - - Weight 86.2 kg (190 lb) 12/16/2023 1:40 AM SALES AND LEASING AGENT Height 149.9 cm (4' 11 ) 12/16/2023 1:40 AM SALES AND LEASING AGENT Body Mass Index 38.38 12/16/2023 1:40 AM SALES AND LEASING AGENT Plan of Treatment Health Maintenance Due Date Last Done Comments Cervical Cancer Screening Pap Smear (Age 21 to 29) Every 3 Years 1997 Cervical Cancer Screening 1997 Annual Physical 2000 DTaP, Tdap and Td Vaccines (5 - Td or Tdap) 03/31/2018 03/31/2008, 05/18/2003, 01/17/2000, Additional history exists COVID-19 Vaccine ( season) 2024 Hepatitis B Vaccines Completed 02/27/1998, 1997, [...] Procedure Name Priority Date/Time Associated Diagnosis Comments HEPATITIS C ANTIBODY Routine 07/12/2024 10:49 AM CDT Screening for -associate d plasma protein A (HHS/HCC) from Last 3 Months or Most Recently Relevant to Health Maintenance Results * HEPATITIS C ANTIBODY (07/12/2024 10:49 AM CDT) HEPATITIS C AB NON-REACTI VE NON-REACTI VE 07/12/2024 9:58 PM CDT [facility] 07/12/2024 10:4 9 AM CDT Ting Lau [facility]M [facility] Final Result [facility] [address] [place] [address], [place] [phone] from Last 3 Months or Most Recently Relevant to Health Maintenance Additional Health Concerns Infection Onset Date Last Indicated ESBL - Extended Spectrum Bet a-lactamase Comment:06/11/23 urine (JK) 06/17/23 urine (JK) 06/11/2023 06/17/2023 Insurance [employer] Advance Directives * Full Code (Latest Code [...] 5:15 PM 04/30/2023 3:29 AM Care Teams Onboarding Specialist Relationship Specialty Start Date End Date Aaron Sanchez MD [address] [place] [address] PCP - General FAMILY PRACTICE 06/22/24
--- OUTSIDE RECORDS SUMMARY | 2025-02-14 17:14 | XMS_ITS | Encounter Summary ---
Author Organization [facility] Address [address] [place] [address] Care Team Providers Care Negative Turner Apprentice Name Role Phone None, Provider Primary Care Provider Krishan Jaeger MD Primary Care Provider Aaron Sanchez MD Primary Care Provider [phone] Encounter Details Date Type Department Care Team (Late st Contact Info) Description 04/16/2019 Abstract SFL CONVERSION [address] [place] [id number] , Generic Conversion, Social History Tobacco Use [...] documented as of this encounter Care Teams Negative Turner Apprentice Relationship Specialty Start Date End Date None, Provider, PCP - General 09/14/18 03/10/22 Krishan Johnson MD [address] [place] [id number] PCP - General FAMILY PRACTICE 03/11/22 06/21/24 Aaron Sanchez MD [address] [place] [address] PCP - General FAMILY PRACTICE 06/22/24 documented as of this encounter
--- NOTE | 2025-02-14 17:50 | LDADM ---
This patient, Ashlee Jeronimo, was admitted to Labor/Delivery/Recovery 104 on 02/14/25 at 17:00. Plans for labor, pain management and were discussed with patient. Patient/family oriented to hospital policies and general routines including ID bracelet, bed and alarms, visiting hours, pain management, procedures, bathroom and other care routines, personal items, smoking policy, room service/diet and guest tray routines, security routines, and visiting hours. Patient/Family are encouraged to report perceived risks to care and to ask questions if they do not understand what they are told or what they should do. See OBIX for further documentation.
[2025-02-14 18:07] LABS: Basophils Percent Auto 0.3 % (0.2-1.2); Eosinophils Absolute Auto 0.4 K/mm3 (0-0.3); Eosinophils Percent Auto 2.5 % (0-4.4); Hematocrit 33.4 % (37.0-47.0); Hemoglobin 10.7 g/dL (12.0-15.0); Immature Granulocyte Absolute 0.21 K/mm3 (0.00-0.031); Immature Granulocyte Percent A 1.4 % (0-0.5); Mean Corpuscular Hemoglobin 29.4 pg (26-34); Mean Corpuscular Volume 91.8 fl (80-100); Mean Platelet Volume 10.9 fl (7.4-10.4); Monocytes Absolute Auto 0.9 K/mm3 (0.1-0.6); Monocytes Percent Auto 6.1 % (2.6-8.5); Neutrophils Absolute Auto 11.6 K/mm3 (1.3-6.7); Neutrophils Percent Auto 77.7 % (45.5-73.1); Platelet Count Result 260 k/mm3 (150-375); Red Blood Count 3.64 M/mm3 (4.2-5.4); Red Cell Distribution Width 14.2 % (11.5-14.5)
--- NOTE | 2025-02-14 18:22 | PC.NURSE ---
Called and left message for return call to verify induction orders.
[2025-02-14 18:46] LABS: Syphilis IgG/IgM Antibody Negative (Negative)
[2025-02-14 18:59] LABS: HIV 1/2 Ab P24 Ag Result Negative (Negative)
[2025-02-14] MEDS: DINOPROSTONE 10 MG VAG INSERT VAGINAL (19:15)
[2025-02-14] MEDS: FAMOTIDINE 20 MG TABLET PO (19:27)
[2025-02-14] MEDS: ONDANSETRON INJ 4 MG/2 ML VIAL IV PUSH (23:51)
[2025-02-15] VITALS (87 sets, daily range): BP systolic 79–148; BP diastolic 49–112; PULSE 71–137; RESP 14–18; TEMP 36.6–37.6; O2SAT 97–100
[2025-02-15] MEDS: LACTATED RINGERS 1,000 ML 125 ML IV CONT
[2025-02-15] MEDS: fentaNYL CITRATE INJ (*CRX) 100 MCG/2 ML VIAL 50 MCG IV PUSH (00:01)
--- NOTE | 2025-02-15 00:53 | P.PNAN_ITS ---
Anes - Eval Pre Procedure Procedure: Labor Epidural Date/Time: 02/15/25 00:53 Surgeon: Jorden Preop Diagnosis: Labor Pain Pre Op Diagnosis: IOL Patient Data Age: 29 Gender: F Height: 1.5 m Weight: 89 kg Last Vital Signs Temp 36.6 C 02/15/25 00:50 Pulse 108 H 02/15/25 00:31 BP 125/88 02/15/25 00:31 O2 Del Method Room Air 02/14/25 17:50 Allergies Allergy/AdvReac Type Severity Reaction Status Date / Time Penicillins Allergy Unknown anaphlaxis Verified 02/13/25 09:55 metoclopramide (From Reglan) AdvReac Intermediate Other Verified 02/13/25 09:55 Home Medications ?Medication ?Instructions ?Recorded ?Confirmed ?Type No Home Medications 01/30/25 02/14/25 History Laboratory Tests 02/14/25 17:34 WBC 15.0 H K/mm3 (4.5-10.0) RBC 3.64 L M/mm3 (4.2-5.4) Hgb 10.7 L g/dL (12.0-15.0) Hct 33.4 L % (37.0-47.0) MCV 91.8 fl (80-100) MCH 29.4 pg (26-34) MCHC 32.0 g/dl (32-36) RDW 14.2 % (11.5-14.5) Plt Count 260 k/mm3 (150-375) MPV 10.9 H fl (7.4-10.4) Immature Gran % (Auto) 1.4 H % (0-0.5) Neut % (Auto) 77.7 H % (45.5-73.1) Lymph % (Auto) 12.0 L % (18.3-44.2) Alger % (Auto) 6.1 % (2.6-8.5) Eos % (Auto) 2.5 % (0-4.4) Baso % (Auto) 0.3 % (0.2-1.2) Lymph # (Auto) 1.80 K/mm3 (0.9-3.2) Alger # (Auto) 0.9 H K/mm3 (0.1-0.6) Eos # (Auto) 0.4 H K/mm3 (0-0.3) Baso # (Auto) 0.0 K/mm3 (0.0-0.1) Abs Immat Gran (auto) 0.21 H K/mm3 (0.00-0.031) Absolute Neuts (auto) 11.6 H K/mm3 (1.3-6.7) Absolute Nucleated RBC 0.000 K/mm3 (0.0-0.012) Nucleated RBC % 0.0 % (0.0-0.2) Syphilis IgG/IgM Ab Negative (Negative) HIV 1&2 Ab/P24 Ag 4thGn Negative (Negative) Blood Type A Positive Antibody Screen Negative : gestational age (, BRENNAN 02/20/25) HCG: positive Patient hx anesthesia problems: none Family hx anesthesia problems: none Results Review: All pre-operative results and documents have been reviewed as part of the pre- operative evaluation. [facility] Past Medical History Medical History History of PCOS Surgical History Surgical History History of appendectomy Family History Family History Grandparent Heart disease Diabetes mellitus Hypertension Social History Social History Smoking status: Never smoker Alcohol intake: former Substance use: never Substance use type: does not use Do You Feel Safe in your Home?: Yes Lack of Transportation: No Lack of Food: Never True Current Housing: I Have Housing Concerned About Future Housing: No Difficulty Paying Gas/Electric Bills: No Difficulty Paying for Meds: No Currently Unemployed: No Education: High School Diploma/GED Difficulty w/ Childcare or Family Care: No Living arrangements: with family Occupation/Education: occupation Gender identity (if verbalized by the patient): Female Spiritual care concerns: No Exam Day of Procedure 02/15/25 00:53 Patient weight: normal Heart: regular rate and rhythm Lungs: normal air movement Airway: Mallampati scale Neurological: alert and oriented
[2025-02-15] MEDS: ceFAZolin 2 GM/D5W 50 ML 2 GM/50 ML BAG IVPB (01:41)
[2025-02-15] MEDS: fentaNYL CITRATE INJ (*CRX) 100 MCG/2 ML VIAL IV PUSH (03:35)
--- NOTE | 2025-02-15 03:52 | PM.OBPRVD ---
OB - Vaginal Delivery Note Procedure Delivery date: 02/15/25 Induction method: Per Cervidil Protocol Delivery augmentation: Pitocin Delivery monitor: External FHT and External Uterine Route of delivery: Episiotomy description: None Laceration Description: None Specimen: No Quantitative Blood Loss (ml): 150 Anesthesia type: Epidural Disposition: Floor Complications: Other complications (retained placenta) Narrative: Patient pushed for a spontaneous vaginal delivery. A nuchal cord x 1 was noted and delivered through. The fetus was delivered atraumatically and placed on the maternal abdomen. The cord was double clamped and cut and a segment of cord was collected for cord gases. Cord blood was collected for blood type and Coomb's testing. During delivery of the placenta, a cord evulsion was noted. The patient was given fentanyl as she was having pain with fundal massage. Bedsided US was performed to visualized the retained placenta. Bedside curettage was performed under direct US visualization. The placenta was removed in pieces. A good endometrial strip was noted on US. The uterus was firm and good hemostasis was noted. Pt was given 1000 mcg of cytotec to prevent atony due to uterine instrumentation. She had been receiving Ancef throughout labor. Baby Date of : 02/15/25 Time of : 03:26 Gestational Age by Date: 39 gender: Male presentation: vertex position: Right Occiput Anterior Placenta delivery description: Manual Removal (uterine curettage ) Cord Vessel Description: 3 Vessels and Nuchal Cord score one minute: 7 score five minutes: 9
--- NOTE | 2025-02-15 03:59 | WPDHPUPDATE1 ---
History and Physical Update Update Date/Time: 02/15/25 03:59 29 yo who presents at 39w for elective IOL History and Physical has been reviewed, including an updated exam of the patient. There are NO changes in the patient's condition. Risks, benefits, and alternatives have been discussed and questions answered. Patient agrees to proceed with procedure. A/P: admit to L&D routine admission orders Rh+ GBS +, Ancef throughout labor continuous EFM plan for cervidil IOL
[2025-02-15] MEDS: miSOPROStol 200 MCG TABLET 1000 MCG RECTAL (04:12)
[2025-02-15] MEDS: OXYTOCIN 30 UNITS/NS 500 ML 30 UNITS/500 ML BAG 125 UNITS IV CONT (04:12)
[2025-02-15] MEDS: BENZOCAINE 20% AER SPR (*SP) 56 GM CAN 1 SPRAY TOPICAL (07:09)
[2025-02-15] MEDS: WITCH HAZEL 40 PADS 1 PAD TOPICAL (07:09)
--- NOTE | 2025-02-15 07:27 | OBPPTRN ---
Patient transferred to post room #279 via wheelchair. Support person present. Oriented to unit, room, information board, rooming in, admission packet and security measures. Patient verbalizes understanding.
--- NOTE | 2025-02-15 11:15 | PC.NURSE ---
Introductions were made, then consulted with patient to assess needs related to . Discussed with mother her?plans to feed?her and the?experience so far. She plans to breast and pump and bottle feed expressed breastmilk. She brought in many colostrum collectors full with milk for baby. Resources provided for inpatient and outpatient services with the feeding sheet, mom/baby guide and name written on the communication board. Mother voiced understanding of information and will call if there is a request for assistance. Reported to the Primary RN.
[2025-02-15] MEDS: ACETAMINOPHEN 325 MG TABLET 650 MG PO ×3 (12:00→23:35)
--- NOTE | 2025-02-15 14:10 | PC.NURSE ---
Infant blood sugar obtained so mother can breastfeed. She states that has been spitting up and she was trying to wake him to feed without success. Encouraged her to place him skin to skin and to call if she is unable to wake him to feed. We also reviewed that spit up is normal after delivery and thick mucous spit up can take a few days to resolve. Mother agrees to call as needed.
[2025-02-15] MEDS: IBUPROFEN 600 MG TABLET PO ×2 (18:40→23:36)
[2025-02-15] MEDS: HYDROcodone/acetaminophen (*CRX) 5-325 MG TABLET 1 TAB (20:00)
[2025-02-16 00:15] VITALS: BP 132/75; PULSE 84; RESP 14; TEMP 36.9; O2SAT 98
[2025-02-16] MEDS: HYDROcodone/acetaminophen (*CRX) 5-325 MG TABLET 1 TAB PO ×2 (02:28→08:28)
[2025-02-16 06:06] LABS: Hematocrit 29.7 % (37.0-47.0)
--- NOTE | 2025-02-16 07:30 | PM.OBDSVD ---
DS: Admitting Diagnosis Discharge Date 02/16/25 Admitting Diagnosis intrauterine at term DS: Discharge Diagnosis Discharge Diagnosis (1) Normal vaginal delivery: Code(s): O80 - Encounter for full-term uncomplicated delivery Status: Acute OB - DS: Summary OB Procedures : None OB Procedures Intrapartum: Spontaneous Vag Delivery OB Procedures: : None Peripartum Data Laceration Description: None Episiotomy description: None Status at Discharge Functional status at discharge: independent ambulation Overall status at discharge: patient is back to baseline Time Spent with Patient Time attestation: Total time spent providing and/or coordinating discharge services: Time spent: Less than 30 minutes Exam Const: General: comfortable and no acute distress Resp: Effort & Inspection: normal respiratory effort Auscultation: clear to auscultation bilaterally Cardio: Rate: regular rate GI: GI Palp: Yes Soft to palpation Auscultation: normal bowel sounds Other: Fundus firm below umbilicus Psych: Appearance: grossly normal Mental Status: mental status grossly normal Affect: normal affect DS: Data Data Completed and Pending Labs on day of discharge: Labs from last 24 hours 02/16/25 04:36 Hgb 9.0 L Hct 29.7 L Discharge Plan Discharge Discharging Clinician: Mayur Leonardo Patient Disposition: Home Activity: as tolerated and pelvic rest Diet: regular Patient Instructions: Antibiotic Form, Vaginal Delivery (DC) Patient Language: Fijian Stand Alone Forms: General Discharge Information Follow-up/Referrals: Mayur Leonardo MD [Physician] - Discharge Medications: New ibuprofen 600 mg tablet 600 mg PO Q6H PRN (Reason: pain) Qty: 30 0RF docusate sodium 100 mg Capsule 100 mg PO BID PRN (Reason: Constipation) Qty: 30 0RF polysaccharide iron complex 150 mg iron Capsule 150 mg PO BIDWM Qty: 30 0RF acetaminophen 500 mg tablet 500 mg PO Q6H PRN (Reason: pain) Qty: 30 0RF No Action No Home Medications Date of admission: 02/14/25 17:00 Primary Care Provider: UNKNOWN,DOCTOR Admitting Provider: Mayur Leonardo Attending physician on admission: Mayur Leonardo Condition: Stable
[2025-02-16 07:40] VITALS: BP 104/66; PULSE 83; RESP 16; TEMP 36.7; O2SAT 99
[2025-02-16] MEDS: POLYSACCHARIDE IRON COMPLEX 150 MG CAPSULE PO ×2 (08:28→17:21)
[2025-02-16] MEDS: DOCUSATE SODIUM 100 MG CAPSULE PO ×2 (08:28→17:21)
[2025-02-16] MEDS: MULTIVIT/MIN/PREN/FOL AC/IRON TABLET 1 TAB PO (08:28)
--- NOTE | 2025-02-16 10:28 | WPDANLDPN2 ---
Anes-Prog Note L&D Date/Time: 02/16/25 10:28 Neuro status: Neuro function grossly intact. Cardiovascular status: normal Respiratory status: normal Airway patency: baseline Mental status: baseline Vital Signs: Last Vital Signs Temp 36.7 C 02/16/25 07:40 Pulse 83 02/16/25 07:40 Resp 16 02/16/25 07:40 BP 104/66 02/16/25 07:40 Pulse Ox 99 02/16/25 07:40 O2 Del Method Room Air 02/16/25 07:55 Pain score (VAS): 0 I/O: Intake & Output 02/15/25 02/16/25 02/16/25 23:59 07:59 15:59 Intake Total 200 Balance 200 Patient feedback: Patient satisfied with anesthetic care.
[2025-02-16] MEDS: ACETAMINOPHEN 325 MG TABLET 650 MG PO ×2 (13:11→20:58)
[2025-02-16] MEDS: IBUPROFEN 600 MG TABLET PO ×2 (13:11→20:58)
[2025-02-16 19:30] VITALS: BP 125/73; PULSE 81; RESP 16; TEMP 37; O2SAT 100
[2025-02-17 07:25] VITALS: BP 116/81; PULSE 84; RESP 14; TEMP 36.7; O2SAT 99
[2025-02-17] MEDS: DOCUSATE SODIUM 100 MG CAPSULE PO (08:39)
[2025-02-17] MEDS: polyethylene glycoL 3350 17 GM POWD.PACK PO (08:39)
[2025-02-17] MEDS: MULTIVIT/MIN/PREN/FOL AC/IRON TABLET 1 TAB PO (08:39)
[2025-02-17] MEDS: POLYSACCHARIDE IRON COMPLEX 150 MG CAPSULE PO (08:39)
--- NOTE | 2025-02-17 09:23 | PC.NURSE ---
0923 Consulted with mother concerning needs and she shared her ability to independently latch optimally without pain, she is also giving baby a bottle as needed, she has her own breast pump at home that she will use if needed. Mother is feeding appropriately for growth of and understands stimulating to eat if needed. has had appropriate feedings in the last 24 hours meets the outcomes for weight, output, blood sugar and jaundice at this time. Reinforced understanding of milk production, transition of milk, signs of adequate intake, transition of stool, prevention/relief of engorgement, plugged ducts, mastitis, responsive watching for feeding cues, the different methods of stimulating to breastfeed 1-3 hours after the start of the last feeding, community resources, and when to call a provider using the resource of the feeding sheet along with the mom and baby guide. Mother voiced understanding of the information shared, is confident to continue effectively her at home, when to call for assistance, denies any additional assistance or education at this time. Reported to the Primary RN.
== END 2025-02-17 13:50 | disposition home or self-care (01) | DRG 560 ==
LOC: ANHLDR 17:01 → ANHOB2 02-15 07:28
PROVIDERS: Admitting Provider Student in an Organized Health Care Education/Training Program; Visit Provider Student in an Organized Health Care Education/Training Program
DX: O69.81X0 Labor and delivery complicated by cord around neck, without compression, not applicable or unspecified (principal); O73.0 Retained placenta without hemorrhage; O99.824 Streptococcus B carrier state complicating childbirth; Z3A.39 39 weeks gestation of pregnancy; Z37.0 Single live birth
CPT/HCPCS: 36415; 85014; 85018; 85025; 86593; 86703; 86850; 86900; 86901; A9270; G0432; J0690; J2405; J2590; J2795; J3010; J7120